=== PATIENT | female | born 1960 | race Hispanic/Latino ===

== ENCOUNTER → 2019-12-03 | Outpatient (CLI) | payer OTHER | END | disposition home or self-care (01) | LOC: SHCH 09:05 | PROVIDERS: ATTEND Internal Medicine Cardiovascular Disease | DX: I73.9 Peripheral vascular disease, unspecified (principal); R55 Syncope and collapse; R07.9 Chest pain, unspecified | CPT/HCPCS: 93306; 93356; 93925 ==

== ENCOUNTER → 2019-12-10 | Outpatient (CLI) | payer OTHER | END | disposition home or self-care (01) | LOC: OIH 13:03 | PROVIDERS: ATTEND Internal Medicine Cardiovascular Disease | DX: Z13.6 Encounter for screening for cardiovascular disorders (principal) | CPT/HCPCS: 75571 ==

== ENCOUNTER → 2021-10-17 | Outpatient (CLI) | payer OTHER ==
[~2021-10-17] MED LIST: IOHEXOL 350 MG/ML 100ML INFUS..BTL IV ONE
== END | disposition home or self-care (01) ==
LOC: RAH 10:15
PROVIDERS: ATTEND Internal Medicine Gastroenterology
DX: M47.815 Spondylosis without myelopathy or radiculopathy, thoracolumbar region (principal); R19.01 Right upper quadrant abdominal swelling, mass and lump; N28.1 Cyst of kidney, acquired
CPT/HCPCS: 74177; Q9967

== ENCOUNTER → 2023-08-28 | Outpatient (CLI) | payer OTHER | END | disposition home or self-care (01) | LOC: RAH 13:13 | PROVIDERS: ATTEND Internal Medicine | DX: M19.012 Primary osteoarthritis, left shoulder (principal); M25.712 Osteophyte, left shoulder; M25.812 Other specified joint disorders, left shoulder | CPT/HCPCS: 73030 ==

== ENCOUNTER 2024-07-16 08:37 | Observation (INO) | payer OTHER ==
[2024-07-14 15:31] LABS: BASOPHILS # (AUTO) 0.04 K/uL (0.00-0.20); BASOPHILS % (AUTO) 0.5 % (0.0-5.0); EOSINOPHILS # (AUTO) 0.11 K/uL (0.00-0.70); EOSINOPHILS % (AUTO) 1.4 % (0.0-8.0); HEMATOCRIT 37.5 % (36-48); IMMATURE GRANULOCYTE ABSOLUTE 0.01 K/uL (0-1); LYMPHOCYTES # (AUTO) 3.1 K/uL (1.0-4.8); LYMPHOCYTES % (AUTO) 41.1 % (21.0-51.0); MEAN CORPUSCULAR HEMOGLOBIN 29.5 pg (27.0-33.0); MEAN CORPUSCULAR HGB CONC 33.3 g/dL (32.0-36.0); MEAN CORPUSCULAR VOLUME 88.4 fL (79-99); MONOCYTES # (AUTO) 0.5 K/uL (0.1-1.0); MONOCYTES % (AUTO) 6.1 % (3.0-13.0); NEUTROPHILS # (AUTO) 3.9 K/uL (1.8-7.7); NEUTROPHILS % (AUTO) 50.8 % (40.0-77.0); PLATELET COUNT (AUTO) 346 K/uL (130-400); RED BLOOD CELL COUNT(AUTO) 4.24 MIL/uL (4.00-5.50); RED CELL DISTRIBUTION WIDTH 13.9 % (11.0-15.5); WHITE BLOOD COUNT (AUTO) 7.6 K/uL (4.8-10.8)
[2024-07-14 15:38] VITALS: BP 136/63; PULSE 89; RESP 17; TEMP 98.4
[2024-07-14 15:40] LABS: PROTHROMBIN TIME 10.6 SEC (9.6-11.6)
[2024-07-14 15:42] LABS: PARTIAL THROMBOPLASTIN TIME 29.6 SEC (26.3-35.5)
[2024-07-14 15:45] LABS: CREATININE 0.6 mg/dL (0.5-1.0); POTASSIUM 3.7 mmol/L (3.5-5.1)
--- NOTE | 2024-07-15 06:33 | EKG ---
[facility] Test Date: 2024-07-14 Test Time: 15:00:28 Pat Name: BORIS TAVERAS Department: [facility] Room: Gender: F Sports Intern: [id number] : 1960 Requested By: VITALY NGUYEN Order Number: [id number] Reading MD: Caro France Measurements Intervals [place] Rate: 84 P: 55 ND: 174 QRS: 19 QRSD: 79 T: 36 QT: 350 QTc: 415 Interpretive Statements Sinus rhythm No previous ECG available for comparison Electronically Signed On 07-15-2024 18:53:30 CDT by Caro France Please click the below link to view image of tracing.
[2024-07-16] VITALS (32 sets, daily range): BP systolic 124–156; BP diastolic 63–83; PULSE 52–95; RESP 15–20; TEMP 97.3–98.1; O2SAT 97–98
[~2024-07-16] VITALS: Ht 152.4 cm; Wt 62.3 kg
[~2024-07-16 08:37] MED LIST changes: +AMLO-257 PO; -IOHEXOL 350 MG/ML 100ML INFUS..BTL IV ONE; +LEVO150C5 PO; +OMEP40CA21 PO; +ROSU40TA88 PO
[2024-07-16] MEDS: ceFAZolin SODIUM 2 GM VIAL ONE (09:53)
[2024-07-16] MEDS: LACTATED RINGERS 1000ML 1,000 ML IV ONE (09:53)
[2024-07-16] MEDS: GABAPENTIN 300 MG CAPSULE ONE (10:29)
[2024-07-16] MEDS ORDERED: proPOFol 10 MG/ML 20ML VIAL IV ONE (10:44)
[2024-07-16] MEDS ORDERED: FENTanyl CITRate PF 50 MCG/1 ML 2ML VIAL ONE (10:44)
[2024-07-16] MEDS ORDERED: rocuRONium bROMide 10MG/1ML 5ML VL ONE ×2 (10:44→12:54)
[2024-07-16] MEDS ORDERED: LIDOCAINE PF 100MG/5ML (2%) SYRINGE 5ML ONE (10:44)
[2024-07-16] MEDS ORDERED: BUPIvacaine/PF 0.25% 30ML VIAL IJ ONE (11:08)
[2024-07-16] MEDS: FAMOTIDINE 20MG VIAL IV ONE (11:29)
[2024-07-16] MEDS ORDERED: dexaMETHasone SOD PHOSPHATE 10MG/ML 1ML VIAL ONE (11:33)
[2024-07-16] MEDS ORDERED: ondanSETRON 4MG INJ ONE (11:34)
[2024-07-16] MEDS ORDERED: ketaMINE 50MG/ML SYRINGE 50 MG/ML DISP.SYRIN ONE (11:35)
[2024-07-16] MEDS: BUPIvacaine/PF 0.25% 30ML VIAL IJ ONE (11:42)
[2024-07-16] MEDS ORDERED: GLYCOPYRROLATE 0.2 MG/ML 5 ML VIAL ONE (13:26)
[2024-07-16] MEDS ORDERED: NEOSTIGMINE METHYLSULFATE 1MG/ML IV ONE (13:26)
[2024-07-16] MEDS: SUGAMMADEX SODIUM 200 MG/2 ML VIAL IV ONE (13:32)
[2024-07-16] MEDS ORDERED: hydroMORPHone 0.5 MG SYG (0.5MG/0.5ML) IVP PRN (14:00)
[2024-07-16] MEDS ORDERED: ondanSETRON 4MG INJ IVP PRN (14:00)
[2024-07-16] MEDS ORDERED: PROCHLORPERAZINE 10MG/2ML INJ IV PRN (14:00)
[2024-07-16] MEDS ORDERED: ketOROlac 15MG/ML VIAL (15MG/ML) IV PRN (14:00)
[2024-07-16] MEDS ORDERED: hydrALAZine 20MG/ML VIAL IV PRN (14:00)
[2024-07-16] MEDS ORDERED: HYDROcod/acetaMINOPHEN 7.5/325 MG 15 ML UDCUP PO PRN (14:00)
[2024-07-16] MEDS: FENTanyl CITRate PF 50 MCG/1 ML 2ML VIAL ONE ×2 (14:16→14:23)
--- NOTE | 2024-07-16 14:23 | OP ---
Operative Note: DATE OF PROCEDURE: 07/16/24 SURGEON: VITALY NGUYEN MD FISHING LINE WINDING MACHINE OPERATOR: [Please review operative record] ANESTHESIA: [General and local] ANESTHESIOLOGIST/MICROSTRATEGY REPORTS DEVELOPER: [Please review operative record] PREOPERATIVE DIAGNOSIS: [Diaphragmatic hernia, gastroesophageal reflux disease. Ventral hernia] POSTOPERATIVE DIAGNOSIS: [Same in addition to nodular appearance of liver, esophageal and mesenteric varices concerning for liver cirrhosis] SYNOPSIS: [Nodular liver concerning for liver cirrhosis, esophageal and mesenteric varices. 2 cm hiatal hernia. Successfully reduce, Primarily repaired, reinforced with mesh, gastropexy performed. Ventral hernia in the pelvic region, large, no signs of incarceration. Repair deferred due to findings of liver cirrhosis. Post hiatal hernia repair EGD showing adequate reduction of hiatal hernia, no air leak, no intraluminal bleeding] PROCEDURE: [Robotic assisted laparoscopic hiatal hernia repair with mesh reinforcement, gastropexy. Laparoscopic-assisted core needle liver biopsy. Intraoperative EGD] ESTIMATED BLOOD LOSS: [20 cc] INDICATIONS: [Patient is a 63-year-old female with chronic abdominal pain and gastroesophageal reflux disease. Found to have a hiatal hernia on EGD and imaging. Failed medical therapy. Recommendation was given for hiatal hernia repair with mesh reinforcement and possible fundoplication. Patient also with a ventral hernia. It was explained to patient that the main focus of the surgery would be to fix the hiatal hernia and if things are favorable during the operation, a ventral hernia repair would be also performed. Risks, benefits, a lternatives were discussed with the patient. All questions answered. Patient agreed to proceed with surgical intervention of hiatal hernia repair with mesh and possible fundoplication and depending on intraoperative evolution the ventral hernia might also be performed.] DESCRIPTION OF PROCEDURE: [After appropriate consent was obtained, the patient was brought into the operating room and placed in supine position on the operating table. SCDs were placed, preop antibiotics were given. Patient underwent induction of general anesthesia, endotracheal intubation. Patient was then prepped and draped in usual sterile fashion. Time-out was performed. Through a left subcostal incision, Veress needle was inserted into the peritoneal cavity. Insufflation was allowed to 12 mmHg. Through a supraumbilical incision, trocar and laparoscope were inserted into the peritoneal cavity using Elastera. Rest of my trocars were all placed under direct visualization. Through a 5 mm incision in the epigastrium, Raquel mario er retractor was placed in order to retract the left lobe of the liver anteriorly. Patient was positioned in the reverse Trendelenburg at 20. At this time the the Lolly robot was docked. Upon evaluation of the liver, it had a nodular appearance concerning for liver cirrhosis. In addition there were mesenteric varicose veins. It was decided to perform a Laparoscopic-assisted core needle liver biopsy at this time. The leann-cut needle was passed one time to the left lobe of the liver. One sample was obtained. Site was cauterized using hook electrocautery. Given this new findings we then chose to focus on the hiatal hernia repair and not perform the ventral hernia in order to decrease operative time. The ventral wall was examined, there was a large infrapubic large defect, about 10 cm, with no incarcerated contents. Upon evaluation of the hiatus, there was a 2 cm hiatal hernia containing incarcerated cardia. The gastrohepatic ligament was identified and incised using the vessel sealer in a avascular plane. This dissection was carried anteromedially onto the phrenoesophageal membrane. The phrenoesophageal membrane was then divided on the anterior aspect of the hiatal orifice. This incision was extended to the right willian. We then dissected along the inner side of the left willian. A plane was found between the right esophageal wall and the willian and this was followed. Of note during this dissection there was evidence of esophageal varices, this dissection was tedious but safe. While performing this dissection we then followed the posterior aspect of the esophagus until we identified the left willian. Attention was turned to the anterior lateral aspect of the left esophageal wall. This was allowed to completely free the peritoneum around the hiatal orifice. We then focused on dissecting the intra mediastinal portion of the esophagus onto the hiatal hernia was reduce and there was 3 cm of intra-abdominal esophagus. Of note esophageal varices made this dissection a bit more complex but hemostasis was excellent. The EGD was then performed by placing the endoscope through the mouth into the esophagus and into the stomach. With the endoscope in place, we then focused on creating our crural plasty. Using two 0 V lock nonabsorbable suture in a running fashion we closed the crura posterior to the esophagus. At the completion of this, only one instrument was able to pass into the hiatus. In order to reinforce this repair, we then placed a Phasix ST 8 cm mesh in a horseshoe fashion. The mesh was sutured in place using 3-0 V lock absorbable suture in a running fashion in addition to a couple of simple interrupted silk stitches. Given the new diagnosis of cirrhosis with large varicose veins in the esophagus then mesentery, we decided to perform a gastropexy. Using a two 0 V lock absorbable suture the fundus was sutured to the left wall of the esophagus. We then performed an air leak test with the endoscope, this revealed no stenosis, no air leak, and successful reduction of the hiatal hernia. The Lolly robot was undocked. At this time counts were correct. Abdomen was deflated. All instruments were removed. Incisions were closed with 4-0 Monocryl suture. Dermabond was applied over the incisions. Patient tolerated the procedure well. Transferred to recovery in good condition.] VITALY NGUYEN MD Jul 16, 2024 14:23
--- NOTE | 2024-07-16 16:00 | NUR ---
PT ARRIVED AOX4. PT DENIES ANY PAIN AT THE MOMENT. 4 DERMABOND INCISIONS DRY&INTACT.STABLE VS. ON 3L O2. FAMILY AT BEDSIDE. 20G RIGHT HAND RUNNING NS 100ML/HR. BED POSITION TO LOWEST POSITION. CALL LIGHT WITH IN REACH. BED ALARM ON. FAMILY AT BEDSIDE.
[2024-07-16] MEDS: 0.9%NACL 1000ML 1,000 ML IV SCH (17:44)
[2024-07-16] MEDS: PANTOPrazole 40 MG/VIAL IVP SCH (21:18)
[2024-07-17 04:16] VITALS: BP 115/68; PULSE 75; RESP 16; TEMP 97.9
--- NOTE | 2024-07-17 06:27 | NUR ---
DR ZIMMERMAN IN WITH PATIENT PT MAY DISCHARGE HOME FROM HIS STANDPOINT.
[2024-07-17] MEDS: levoTHYROxine 150 MCG TABLET PO SCH (06:50)
[2024-07-17 08:00] VITALS: BP 130/68; PULSE 72; PULSE 75; RESP 18; RESP 19; TEMP 98.1; O2SAT 98
[2024-07-17 09:06] VITALS: O2SAT 98
[2024-07-17] MEDS: amLODIPine 5 MG TAB PO SCH (09:06)
[2024-07-17] MEDS: ENOXAPARIN SODIUM 30 MG/0.3 ML SQ SCH (09:08)
--- NOTE | 2024-07-17 11:38 | DS ---
Discharge Summary HOSPITAL COURSE SUMMARY: This is a 63yo female with past medical history of diaphragmatic hernia, gastroesophageal reflux disease, ventral hernia and concern for cirrhosis who underwent robotic assisted laparoscopic hiatal hernia repair with gastropexy and liver biopsy. SUPERVISOR PIPE MANUFACTURE(S): None PROCEDURES: Robotic assisted laparoscopic hiatal hernia repair with mesh reinforcement, gastropexy. Laparoscopic-assisted core needle liver biopsy. Intraoperative EGD PROBLEM(S): Diaphragmatic hernia, gastroesophageal reflux disease. Ventral hernia. nodular appearance of liver, esophageal and mesenteric varices concerning for liver cirrhosis DISCHARGE INSTRUCTIONS: Follow post op diet Home Meds Reported Medications Amlodipine Besylate (Amlodipine Besylate) 5 Mg Tablet, 5 MG PO DAILY, TAB 07/14/24 Rosuvastatin Calcium (Rosuvastatin Calcium) 40 Mg Tablet, 40 MG PO HS, TAB 07/14/24 Levothyroxine Sodium (Levothyroxine) 150 Mcg Capsule, 150 MCG PO DAILY, CAP 07/14/24 Omeprazole (Omeprazole) 40 Mg Capsule.dr, 1 CAP PO DAILY for 30 Days, #30 CAP 0 Refills 07/14/24 Time spent arranging discharge: 1-30 minutes MELVI [facility] Jul 17, 2024 11:38
--- NOTE | 2024-07-17 11:49 | NUR ---
DCP: HOME Pt currently lives with Vinod Galicia [phone] and son in son's home. Pt does not have any DME, home health, or provider services. Pt is able to complete ADLs independently. PCP is Dr. Cruz Nicole and uses [facility] for any RX needs. At [place] pt will go home and family will assist with transportation. Addendum: 07/17/24 at 1151 by KENDRA MOREJON SS Amended: Links added.
[2024-07-17 12:00] VITALS: BP 120/69; PULSE 77; RESP 19; TEMP 98.2
--- NOTE | 2024-07-17 14:50 | NUR ---
DISCHARGE PT PIV DC PT VERBALIZED UNDERSTANDING OF DISCHARGE INSTRUCTIONS PT HAD NO FUTHER QUESTIONS
== END 2024-07-17 14:50 | disposition home or self-care (01) ==
LOC: DAH 08:37 → INTOOBSV 08:38 → DAHIP 08:38 → 3CH 16:20
PROVIDERS: ADMIT Surgery; ATTEND Surgery
DX: K44.9 Diaphragmatic hernia without obstruction or gangrene (principal); K43.9 Ventral hernia without obstruction or gangrene; K74.60 Unspecified cirrhosis of liver; K21.9 Gastro-esophageal reflux disease without esophagitis; I85.10 Secondary esophageal varices without bleeding; G89.29 Other chronic pain; E03.9 Hypothyroidism, unspecified; M19.90 Unspecified osteoarthritis, unspecified site; I10 Essential (primary) hypertension; Z79.899 Other long term (current) drug therapy
CPT/HCPCS: 80048; 85025; 85610; 85730; 86850; 86900; 86901; 36415; 93005; 96374; 43282; 47379; 88313; 88307; 96376; 96372; A6260; G0378 ×23; A4223 ×2; A4600; A4663; A4215 ×3; J7120; J3490 ×5; J3010 ×3; J1100; J0665 ×2; J2003; J2704; J2405; J2710; J2470 ×2; J0690 ×2; C1781; A4930 ×2; A4222; A4221; A4216; J1650; 43235

== ENCOUNTER 2025-01-14 06:23 | Day surgery (SDC) | payer OTHER ==
[2025-01-13 10:56] VITALS: BP 134/75; PULSE 87; RESP 17; TEMP 98
[2025-01-13 11:06] LABS: IMMATURE GRANULOCYTE ABSOLUTE 0.01 K/uL (0-1); NUCLEATED RED BLOOD CELLS 0.0 % (0.0-0.19); PLATELET COUNT (AUTO) 310 K/uL (130-400); RED BLOOD CELL COUNT(AUTO) 4.23 MIL/uL (4.00-5.50); RED CELL DISTRIBUTION WIDTH 13.3 % (11.0-15.5); WHITE BLOOD COUNT (AUTO) 7.2 K/uL (4.8-10.8)
[2025-01-13 11:16] LABS: CREATININE 0.6 mg/dL (0.5-1.0); GLOMERULAR FILTR. RATE CALC 101.0 mL/min (>90); GLUCOSE,RANDOM 108.0 mg/dL (70-105); SODIUM SERUM 138.0 mmol/L (136-145); UREA NITROGEN, BLOOD 15.0 mg/dL (7-18)
[2025-01-13 11:26] LABS: INR 0.99 (0.85-1.15)
--- NOTE | 2025-01-13 14:24 | EKG ---
[facility] Test Date: 2025-01-13 Test Time: 10:48:04 Pat Name: BORIS TAVERAS Department: [facility] Room: Gender: F Investment Sales Assistant: [id number] : 1960 Requested By: VITALY NGUYEN Order Number: [id number] Reading MD: Javi Taveras Measurements Intervals [place] Rate: 83 P: 59 CO: 162 QRS: 22 QRSD: 81 T: 33 QT: 345 QTc: 407 Interpretive Statements Sinus rhythm Probable left atrial enlargement Compared to ECG 07/14/2024 15:00:28 No significant changes Electronically Signed On 01-13-2025 20:16:24 RUFFLING MACHINE OPERATOR by Javi Taveras Please click the below link to view image of tracing.
[~2025-01-14] VITALS: Ht 152.4 cm; Wt 58.1 kg
[2025-01-14] VITALS (17 sets, daily range): BP systolic 112–135; BP diastolic 53–70; PULSE 61–97; RESP 13–18; TEMP 97–97.8
[2025-01-14] MEDS: LACTATED RINGERS 1000ML 1,000 ML IV ONE (07:17)
--- NOTE | 2025-01-14 10:24 | OP ---
Operative Note: DATE OF PROCEDURE: 01/14/25 SURGEON: VITALY NGUYEN MD SYSTEMS ARCHITECTURE ANALYST: [Please review operative record] ANESTHESIA: [General and local] ANESTHESIOLOGIST/LIFE ENRICHMENT MANAGER: [[facility] anesthesia] PREOPERATIVE DIAGNOSIS: [Ventral hernia] POSTOPERATIVE DIAGNOSIS: [ 4 cm ventral hernia containing incarcerated omentum, peritoneum adhesions] SYNOPSIS: [ 4 cm ventral hernia containing incarcerated omentum, successfully reduced, primarily repair. Reinforced with mesh. Intra-abdominal varices] PROCEDURE: [1. Robotic assisted laparoscopic repair of recurrence of ventral hernia. 2. Extensive lysis of adhesions] ESTIMATED BLOOD LOSS: [50 cc] INDICATIONS: [Patient is a 64-year-old female with chronic left lower quadrant pain. History of colon resection and ileostomy with interim take down. Patient also with history of repair of this hernia in the past. Initial recommendation was for patient to lose weight prior to ventral hernia repair in order to minimize complications and because patient also had history of liver disease with intra-abdominal varices. Once weight was a acceptable range, recommendation was given for ventral hernia repair with mesh. Risks, benefits, alternatives were discussed with the patient. All questions were answered. Patient agreed to proceed with surgical procedure.] DESCRIPTION OF PROCEDURE: [After appropriate consent was obtained, the patient was transferred to the operating room placed in supine position on the operating table. SCDs were placed, preop antibiotics were given. Patient underwent induction of general anesthesia, endotracheal intubation. Patient was then prepped and draped in the usual sterile fashion. Time-out was performed. Through a left subcostal incision, Veress needle was inserted into the peritoneal cavity. Insufflation was allowed to 12 mmHg. Through a right subcostal incision,8 mm trocar and laparoscope was inserted into the peritoneal cavity using Optiview. Rest of my trocars were all placed under direct visualization. Veress needle and this vicinity were examined with no signs of injury. Patient was placed in a slight Trendelenburg at 20. The Lolly robot was docked at this time. Upon evaluation of the abdominal wall, on the left flank, we visualized some omental adhesions. These adhesions contained variceal vessels. This is the area were previous ileostomy was present and after some dissection it appeared to be the area where the hernia was located. At this time we performed careful lysis of adhesions. This was accomplished initially with a combination of blunt and bipolar energy, however due to some bleeding, had to use the vessel sealer in order to ligate some of the variceal vessels. These lysis of adhesions took over 1 hour. Not typical for this case. Once fully reduced, it was clear that this hernia was about4 cm and it was containing incarcerated omentum which was successfully reduced. There was also some suture material which was concerning for the hernia being a recurrence. After reducing the hernia, we then lowered the pressure to 8 mmHg. The fascial edges were reapproximated using two 0 V lock nonabsorbable suture in a running fashion. At the end of the primary repair, the edges of the tissue came together nicely. In order to reinforce this repair, a Phasix ST8 cm round mesh was then used. It was pexy over the repair using 3-0 V lock absorbable suture. At this time our repair was completed. Counts were correct at the end of the case. The Lolly robot was undocked. Final look with the endoscopy revealed adequate hemostasis, no other concerns. At this time abdomen was allowed to desufflate. All instruments were removed. Skin incisions were closed with 4-0 Monocryl. Dermabond was applied over the incisions. Patient tolerated the procedure well. Patient transferred to recovery in good condition.] VITALY NGUYEN MD Jan 14, 2025 10:24
--- NOTE | 2025-01-14 10:27 | DS ---
Discharge Summary Hospital Course Patient is a 64-year-old female admitted from the outpatient setting for elective robotic assisted laparoscopic ventral hernia repair with mesh on 01/14/2025. Patient tolerated the procedure well. No concerns at this time. Currently in recovery. Patient at this time is in no acute distress, hemodynamically stable, afebrile. No tachycardia. Aerating well on2 L nasal cannula. Abdomen is benign, incisions clean dry and intact. Appropriately tender to palpation. No rebound or guarding. Abdominal binder in place. Patient will be in recovery and cleared to discharge home per anesthesia. Postop medications have been submitted to the patient's pharmacy. Patient already has the follow up in place for 01/23/2025 at 10:00 a.m. Patient to avoid lifting more than 20 lb for a month, advance diet as tolerated. Okay to shower in24 hours. Return precautions given. VITALY NGUYEN MD Jan 14, 2025 10:27
--- NOTE | 2025-01-14 10:42 | NUR ---
POST-OP SURGICAL 3 SMALL INCISIONS TO RIGHT ANTERIOR ABDOMEN. 1 DONAVAN TO LEFT UPPER ANTERIOR ABDOMEN. DERMABOND TO ALL 4 INCISIONS. NO ACTIVE BLEEDING OR DRAINAGE NOTED. NO REDNESS OR SWELLING NOTED. DERMABOND DRY AND INTACT. PATIENT ABLE TO WIGGLE TOES.
== END 2025-01-14 11:18 | disposition home or self-care (01) ==
LOC: DAH 06:23
PROVIDERS: ATTEND Surgery
DX: K43.6 Other and unspecified ventral hernia with obstruction, without gangrene (principal); K21.9 Gastro-esophageal reflux disease without esophagitis; E03.9 Hypothyroidism, unspecified; I10 Essential (primary) hypertension; M81.0 Age-related osteoporosis without current pathological fracture; M19.90 Unspecified osteoarthritis, unspecified site; K44.9 Diaphragmatic hernia without obstruction or gangrene; K22.2 Esophageal obstruction; K74.60 Unspecified cirrhosis of liver; Z96.659 Presence of unspecified artificial knee joint; Z79.01 Long term (current) use of anticoagulants; Z90.710 Acquired absence of both cervix and uterus; Z98.890 Other specified postprocedural states; Z79.899 Other long term (current) drug therapy
CPT/HCPCS: 80048; 85025; 85610; 85730; 86850; 86900; 86901; 36415; 93005; 49616; A6260; A4223 ×2; A4600; A4663; A4215 ×2; J7120; J3010; J0665 ×2; J3490; J2405; J0690 ×2; C1781; A4930; A4213; A4222; A4221; A4216